=== PATIENT | male | born 2000 | race Caucasian/White ===

== ENCOUNTER 2021-07-04 15:21 | Emergency (ER) | payer SELFPAY ==
[2021-07-04] MEDS ORDERED: Bupivacaine 0.5% 10 ML SDV INJECT ONE (16:14)
[2021-07-04] MEDS ORDERED: Lidocaine 1% 5 ML VIAL INJECT ONE (16:14)
[2021-07-04] MEDS ORDERED: Diphtheria,Pertussis(Acell),Tetanus Vaccine 0.5 ML Syringe IM ONE (16:14)
[2021-07-04] MEDS ORDERED: ceFAZolin 2 GM in Premix Bag 1 BAG IV ONE (16:18)
[2021-07-04] MEDS ORDERED: Morphine 4 MG/ML VIAL IVPUSH ONE (16:18)
[2021-07-04] MEDS ORDERED: Ondansetron 4 MG/2 ML SDV IVPUSH ONE (16:18)
== END 2021-07-04 17:53 | disposition home or self-care (01) ==
LOC: MW.ED 15:21
DX: S62.635B Displaced fracture of distal phalanx of left ring finger, initial encounter for open fracture (principal); W26.9XXA Contact with unspecified sharp object(s), initial encounter; Z23 Encounter for immunization
CPT/HCPCS: 11760; 73130; 90471; 90715; 96365; 96375; 99283; J0690; J2270; J2405; J3490